=== PATIENT | male | born 1970 | race Caucasian/White ===

== ENCOUNTER → 2017-10-12 | Outpatient (CLI) | payer OTHER ==
[2017-10-12 13:42] LABS: ADD MAN DIFF? NO
[2017-10-12 13:53] LABS: ANION GAP 7 (6-14); BLOOD UREA NITROGEN 20 mg/dL (8-26); CALCIUM 8.9 mg/dL (8.5-10.1); CARBON DIOXIDE 29 mmol/L (21-32); CHLORIDE 106 mmol/L (98-107); CREATININE 1.1 mg/dL (0.7-1.3); GFR 71.8; GLUCOSE 97 mg/dL (70-99); SODIUM 142 mmol/L (136-145)
[2017-10-12 13:55] LABS: BASO % 1 % (0-3); EOS # 0.3 x10^3/uL (0.0-0.7); EOS % 4 % (0-3); HEMATOCRIT 45.2 % (39.0-53.0); HEMOGLOBIN 16.1 g/dL (13.0-17.5); LYMPH # 1.8 x10^3/uL (1.0-4.8); LYMPH % 23 % (24-48); MEAN CORPUSCULAR HEMOGLOBIN 30 pg (25-35); MEAN CORPUSCULAR HGB CONC 36 g/dL (31-37); MEAN CORPUSCULAR VOLUME 85 fL (79-100); MONO # 0.7 x10^3/uL (0.0-1.1); MONO % 9 % (0-9); NEUT # 4.9 x10^3uL (1.8-7.7); NEUT % 64 % (31-73); PLATELET COUNT 203 x10^3/uL (140-400); RED BLOOD COUNT 5.33 x10^6/uL (4.30-5.70); RED CELL DISTRIBUTION WIDTH 13.4 % (11.5-14.5); WHITE BLOOD COUNT 7.6 x10^3/uL (4.0-11.0)
== END | disposition home or self-care (01) ==
LOC: SURG 13:13
DX: Z01.818 Encounter for other preprocedural examination (principal); R94.31 Abnormal electrocardiogram [ECG] [EKG]
CPT/HCPCS: 36415; 71046; 80048; 85025; 93005

== ENCOUNTER 2017-10-24 06:07 | Inpatient (IN) | payer OTHER ==
[~2017-10-24 06:07] MED LIST: PHENYLEPHRINE 0.25% NASAL SPRAY 15ML BOTTLE. NS
[2017-10-24] MEDS ORDERED: PROPOFOL 20 ML IV ×2 (06:35→09:06)
[2017-10-24] MEDS ORDERED: ONDANSETRON PF 4 MG/2 ML VIAL. (06:35)
[2017-10-24] MEDS ORDERED: DEXAMETHASONE SOD PHOS 20 MG/5 ML VIAL. (06:35)
[2017-10-24] MEDS ORDERED: fentaNYL PF VIAL 100 MCG/2 ML VIAL ×4 (06:36→12:24)
[2017-10-24] MEDS ORDERED: LIDOCAINE 2% PF Vial for OR 5 ML VIAL. (06:36)
[2017-10-24] MEDS ORDERED: ROCURONIUM 50 MG/5 ML VIAL. ×2 (06:36→08:20)
[2017-10-24] MEDS: IV RINGERS,LACTATED 1000ML 1,000 ML IV (06:52)
[2017-10-24] MEDS ORDERED: PROCHLORPERAZINE 10 MG/2 ML VIAL. IV (07:00)
[2017-10-24] MEDS ORDERED: LIDOCAINE 1% PF 2 ML VIAL. ID (07:00)
[2017-10-24] MEDS ORDERED: ONDANSETRON PF 4 MG/2 ML VIAL. IV ×2 (07:00→12:15)
[2017-10-24] MEDS ORDERED: fentaNYL PF VIAL 100 MCG/2 ML VIAL IV (07:00)
[2017-10-24] MEDS ORDERED: MIDAZOLAM HCL/PF 2 MG/2 ML VIAL. (07:20)
[2017-10-24] MEDS: CLINDAMYCIN 900MG PREMIX 50 ML IV ×3 (07:40→21:48)
[2017-10-24] MEDS ORDERED: PHENYLEPHRINE in 0.9% NACL PF 1 MG/10 ML SYRINGE. IV (07:57)
[2017-10-24] MEDS: BUPIVAC MPF-EPI 0.5%-1:200000 30 ML VIAL. INJ (08:01)
[2017-10-24] MEDS ORDERED: ePHEDrine PF IN SALINE 50 MG/5 ML DISP.SYRIN IV (08:11)
[2017-10-24] MEDS ORDERED: SEVOFLURANE > 120 MINUTES. IH (09:23)
[2017-10-24] MEDS ORDERED: NEOSTIGMINE METHYLSULFATE 5 MG/5 ML SYRINGE. (11:09)
[2017-10-24] MEDS ORDERED: GLYCOPYRROLATE 1 MG/5 ML VIAL. (11:24)
[2017-10-24] MEDS ORDERED: NALOXONE 0.4 MG/ML VIAL. IV (12:15)
[2017-10-24] MEDS: fentaNYL PF VIAL 100 MCG/2 ML VIAL IV ×2 (12:29→12:46)
[2017-10-24] MEDS ORDERED: KETOROLAC 30 MG/ML INJ. IV (12:45)
[2017-10-24] MEDS ORDERED: PROCHLORPERAZINE 10 MG/2 ML VIAL. (12:52)
[2017-10-24] MEDS ORDERED: MORPHINE SULFATE 4 MG/ML DISP.SYRIN. (12:52)
[2017-10-24] MEDS: MORPHINE SULFATE 4 MG/ML DISP.SYRIN. IV ×2 (13:03→13:13)
[2017-10-24] MEDS: IV NORMAL SALINE 1000ML BAG 1,000 ML IV (14:51)
[2017-10-24] MEDS: IV DEXTROSE 5 %-0.45 % NACL 1,000 ML IV (18:30)
[2017-10-24] MEDS: DEXAMETHASONE SOD PHOS 4 MG/ML VIAL IV (18:30)
[2017-10-25] MEDS: DEXAMETHASONE SOD PHOS 4 MG/ML VIAL IV ×4 (02:06→19:12)
[2017-10-25] MEDS: IV DEXTROSE 5 %-0.45 % NACL 1,000 ML IV ×3 (02:34→19:15)
[2017-10-25] MEDS: CLINDAMYCIN 900MG PREMIX 50 ML IV ×3 (04:41→21:23)
[2017-10-25] MEDS: amLODIPine BESYLATE 10 MG TABLET PO (09:07)
[2017-10-25] MEDS: IV NORMAL SALINE 1000ML BAG 1,000 ML IV (12:15)
[2017-10-25] MEDS: LACTOBACILLUS RHAMNOSUS GG 1 CAPSULE. PO (20:46)
[2017-10-26] MEDS: DEXAMETHASONE SOD PHOS 4 MG/ML VIAL IV ×3 (00:59→12:00)
[2017-10-26] MEDS: IV DEXTROSE 5 %-0.45 % NACL 1,000 ML IV (04:45)
[2017-10-26] MEDS: CLINDAMYCIN 900MG PREMIX 50 ML IV (05:26)
[2017-10-26] MEDS: LACTOBACILLUS RHAMNOSUS GG 1 CAPSULE. PO (09:00)
[2017-10-26] MEDS: amLODIPine BESYLATE 10 MG TABLET PO (09:00)
[2017-10-26] MEDS: HYDROcodon/APAP 7.5/325MG ORAL 15 ML SOLUTION PO (10:26)
[2017-10-26] MEDS: IV NORMAL SALINE 1000ML BAG 1,000 ML IV (12:15)
== END 2017-10-26 13:11 | disposition home or self-care (01) | DRG 132 ==
LOC: OPSVCIP 06:07 → 2 NORTH 13:33
PROC: 0NST04Z Reposition Right Mandible with Internal Fixation Device, Open Approach (ICD-10-PCS; principal; 2017-10-24 07:30)
PROC: 0NS Head and Facial Bones, Reposition (ICD-10-PCS; 2017-10-24 07:30)
PROC: 0NSV04Z Reposition Left Mandible with Internal Fixation Device, Open Approach (ICD-10-PCS; 2017-10-24 07:30)
PROC: 0NSR04Z Reposition Maxilla with Internal Fixation Device, Open Approach (ICD-10-PCS; 2017-10-24 07:30)
PROC: 0NSL04Z Reposition Left Palatine Bone with Internal Fixation Device, Open Approach (ICD-10-PCS; 2017-10-24 07:30)
DX: M26.02 Maxillary hypoplasia (principal); I10 Essential (primary) hypertension; M26.04 Mandibular hypoplasia; M26.4 Malocclusion, unspecified; M26.24 Reverse articulation; M26.19 Other specified anomalies of jaw-cranial base relationship
CPT/HCPCS: A7015; C1713; J1100; J2250; J2270; J2370; J2405; J2704; J2710; J3010; J3490; J7030; J7120